=== PATIENT | male | born 1995 | race Caucasian/White ===

== ENCOUNTER 2021-11-29 00:26 | Emergency (ER) | payer BC ==
[2021-11-29] MEDS ORDERED: Ondansetron ODT 4 MG TAB ONE (01:22)
== END 2021-11-29 02:10 | disposition home or self-care (01) ==
LOC: BURERS 00:26
DX: S00.83XA Contusion of other part of head, initial encounter (principal); W01.198A Fall on same level from slipping, tripping and stumbling with subsequent striking against other object, initial encounter
CPT/HCPCS: 70450; Q0162